=== PATIENT | male | born 2005 | race African-American/Black ===

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

== ENCOUNTER 2024-11-20 09:05 | Emergency (ER) | payer SELFPAY ==
[2024-11-20] MEDS ORDERED: Ibuprofen 200 MG TAB ONE (09:44)
== END 2024-11-20 09:55 | disposition home or self-care (01) ==
LOC: NAV ERS 09:05
DX: R51.9 Headache, unspecified (principal); F17.290 Nicotine dependence, other tobacco product, uncomplicated
CPT/HCPCS: 99283